=== PATIENT | female | born 1995 | race Two or more races ===

== ENCOUNTER 2016-08-25 15:27 | Emergency (ER) | payer SELFPAY ==
--- NOTE | 2016-08-25 15:30 | ED Physician Chart ---
Chief Complaint/HPI - Patient Information Date Seen:: 08/25/16 Time Seen:: 15:30 Chief Complaint:: abdominal pain History of Present Illness:: 21-year-old female approximately 10 weeks , complains of acute, constant , aching, moderate to severe, 8 out of 10 at worst, nonradiating, epigastric pain 10 days. Has associated decreased appetite. Denies nausea, vomiting, diarrhea, gross hematuria, dysuria, gross blood in stool, chest pain, palpitations, vaginal bleeding, vaginal discharge, pelvic pain, headache, numbness, tingling. Historian:: Patient Review:: Nurse's Note Reviewed Review of Systems - Review of Systems Other: Complete system review otherwise unremarkable except as noted in history of present illness. Past Medical History - Past Medical History Past Medical History: No significant medical hx Family History: None Social History: Non Smoker, No Alcohol, No Drug Use, Surgical History: None Psychiatricy History: None Medication: None Family Medical History - Family Member Mother History Unknown: Yes Ethnicity: Non- Physical Exam - Physical Examination Other:: INITIAL VITAL SIGNS: Reviewed by me GENERAL: Alert and interactive. No acute distress HEAD: Head is normocephalic and atraumatic EYES: EOMI. PERRL. No scleral icterus. No conjunctival injection ENT: Moist mucous membranes. NECK: Supple. No masses. Full range of motion RESPIRATORY: No tachypnea. Clear breath sounds bilaterally. No wheezing, rales, or rhonchi CV: Regular rate and rhythm. No murmurs, rubs, or gallops ABDOMEN: Soft, non-distended, non-tender. No guarding. No rebound. No masses. EXTREMITIES: No deformity. No cyanosis. No edema. SKIN: Warm and dry. No obvious rashes. NEUROLOGIC: Alert and oriented. Face is symmetric. Speech is normal. Moves all extremities equally. Motor and sensory distally intact. Labs/Radiology/EKG Results - Radiology Results Results: Ultrasound abdomen NAD ED Septic Shock - . Is Septic Shock (SBP<90, OR Lactate>4 mmol\L) present?: No Reassessment (Disposition) - Reassessment Reassessment:: Blood pressure was noted to be elevated over 120/80. There were no signs of hypertension. Discussed the findings with the patient and recommended that the patient follow up with the primary care physician regarding the elevated blood pressure. Patient had epigastric pain for the past 10 days. No findings on ultrasound. Labs unremarkable. Urine without bacteria. Recommended Tylenol. Follow-up with OB in 1-2 days. Ultrasound showed no acute findings and good heart tone 175 bpm.. Return to ER precautions. Patient says she understands and agrees the plan. Reassessment Condition:: Improved - Diagnosis Diagnosis:: Acute epigastric pain/abdominal pain during Elevated blood pressure without diagnosis of hypertension - Aftercare/Follow up Instructions Aftercare/Follow-Up Instructions:: Counseled pt regarding lab results/diagnosis & need follow up, Refer to Discharge Instructions - Patient Disposition Discharge/Transfer:: Home Time:: 16:44 Condition at Disposition:: Improved ED Discharge Plan - Patient Disposition Admit/Discharge/Transfer: PT DISCHARGED HOME Condition at Disposition: Improved Instructions: Abdominal Pain During Additional Instructions: 1. Follow up with your OBGYN ALISE. 2. Return to emergency department if symptoms worsen.
[2016-08-25 16:05] LABS: % BASOPHILS 0.2 % (0.0-2.0); % EOSINOPHILS 0.4 % (0.0-5.0); % MONOCYTES 4.8 % (2.0-10.0); % NEUTROPHILS 72.6 % (40.0-80.0); HEMOGLOBIN 13.2 gm/dL (11.7-15.5); MEAN CELL VOLUME 84.7 fl (81-100); MEAN CORPUSCULAR HEMOGLOBIN 28.7 pg (27.0-31.0); MEAN CORPUSCULAR HGB CONC 33.9 pg (28.0-36.0); MEAN PLATELET VOLUME 9.2 fl; NEUTROPHILE ABSOLUTE 7.2 Th/cmm (1.8-8.0); PLATELET COUNT 178 Th/cmm (150-400); RED BLOOD COUNT 4.61 Mil/cmm (3.80-5.10); RED CELL DISTRIBUTION WIDTH 11.6 % (11.5-20.0); WHITE BLOOD COUNT 9.9 Th/cmm (4.8-10.8)
[2016-08-25 16:13] LABS: AMYLASE SERUM 54 U/L (29-103); LIPASE 10 U/L (11-82)
[2016-08-25 16:15] LABS: ALB/GLOB RATIO 1.3 (1.0-1.8); ALKALINE PHOSPHATASE 48 U/L (34-104); ANION GAP 10.8 (7.0-16.0); BILIRUBIN,TOTAL 1.4 mg/dL (0.3-1.0); BUN - UREA NITROGEN 7 mg/dL (7-25); BUN/CREATININE RATIO 11.7; CALCIUM SERUM 9.9 mg/dL (8.6-10.3); CARBON DIOXIDE 21.6 mEq/L (21.0-31.0); CHLORIDE 106 mEq/L (98-107); CREATININE - SERUM 0.6 mg/dL (0.6-1.2); GLUCOSE 89 mg/dL (70-105); POTASSIUM SERUM 3.4 mEq/L (3.5-5.1); SGOT 13 U/L (13-39); SGPT/ALT 22 U/L (7-52); SODIUM SERUM 135 mEq/L (136-145)
[2016-08-25 16:28] LABS: URINE BILIRUBIN NEGATIVE (NEGATIVE); URINE COLOR YELLOW; URINE GLUCOSE (UA) NEGATIVE (NEGATIVE)
[2016-08-25 16:29] LABS: URINE BLOOD NEGATIVE (NEGATIVE); URINE KETONE >=80 mg/dL (NEGATIVE); URINE PH 5.5; URINE PROTEIN NEGATIVE (NEGATIVE); URINE UROBILINOGEN 0.2 E.U./dL (0.2 - 1.0)
[2016-08-25 16:31] LABS: URINE BACTERIA NONE SEEN /hpf (NONE SEEN); URINE EPITHELIAL CELLS FEW /lpf (FEW); URINE RBC NONE SEEN /hpf (0-5); URINE WBC 0-2 /hpf (0-5)
--- NOTE | 2016-08-26 10:12 | Diagnostic Imaging Report ---
Right upper quadrant ultrasound, limited History: Epigastric pain Comparison: None Technique/procedure: Sonography of the right upper quadrant was performed in multiple planes. No evidence of gallstones or gallbladder wall thickening. The common bile duct measures 4 mm. No pericholecystic fluid. IMPRESSION: No evidence of gallstones.
== END 2016-08-25 16:48 | disposition home or self-care (01) ==
LOC: ER 15:27
DX: O26.891 Other specified pregnancy related conditions, first trimester (principal); R10.13 Epigastric pain; R03.0 Elevated blood-pressure reading, without diagnosis of hypertension; Z3A.10 10 weeks gestation of pregnancy
CPT/HCPCS: 36415-UA; 76705-TC; 80053-TC; 81001-TC; 82150-TC; 83690-TC; 84703-TC; 85025-TC